=== PATIENT | female | born 1950 | race Caucasian/White ===

== ENCOUNTER 2018-03-16 11:06 | Inpatient (IN) | payer MEDICAID ==
[~2018-03-16] VITALS: Ht 160 cm; Wt 72.6 kg
[2018-03-16 12:11] LABS: BASOPHILS % 0.7 % (0.0-2.0); EOSINOPHILS % 4.3 % (0.0-5.0); HEMATOCRIT. 29.3 % (36.0-48.0); HEMOGLOBIN. 9.6 g/dL (12.0-16.0); LYMPHOCYTES % 15.4 % (20.0-50.0); MEAN CORPUSCULAR HEMOGLOBIN 27.6 pg (28.0-32.0); MEAN CORPUSCULAR VOLUME 84.5 fL (81.0-99.0); MEAN PLATELET VOLUME 8.6 fl (7.4-10.4); MONOCYTES % 5.9 % (2.0-8.0); NEUTROPHILS % 73.7 % (40.0-76.0); PLATELET 282 x1000/uL (130-400); RED BLOOD CELL COUNT 3.47 mill/uL (4.2-5.4); RED CELL DISTRIBUTION WIDTH 20.9 % (11.6-14.6)
[2018-03-16 12:15] LABS: INR 1.1; PARTIAL THROMBOPLASTIN TIME 48.9 sec (23.4-31.0)
[2018-03-16 12:17] LABS: PHOSPHORUS 3.1 mg/dL (2.5-4.9)
[2018-03-16 12:24] LABS: BG BASE EXCESS -4.8 mmol/L (-2.0-2.0); BG CARBOXYHEMOGLOBIN 0.1 % (0.5-1.5); BG DEOXYHEMOGLOBIN 3.5 % (0.0-5.0); BG FRACTION INSPIRED OXYGEN 21; BG HCO3 ACT 20.1 mmol/L (22.0-26.0); BG METHEMOGLOBIN 0.1 % (0.0-1.5); BG OXYGEN SATURATION 96.5 % (92.0-98.5); BG OXYHEMOGLOBIN 96.3 % (94.0-97.0); BG PCO2 36.6 mmHg (35.0-45.0); BG PH 7.358 (7.350-7.450); BG PO2 88.4 mmHg (75.0-100.0); BG SAMPLE SITE RIGHT BRACHIAL; BG TOTAL HEMOGLOBIN 9.9 g/dL (12.0-18.0); BG VENT MODE ROOM AIR
[2018-03-16] MEDS ORDERED: INSULIN REGULAR (HUMULIN R) 300UNITS/3ML IV ONE (12:45)
[2018-03-16 16:00] VITALS: BP 209/86
[2018-03-16] MEDS ORDERED: ONDANSETRON HCL 4MG/2ML VIAL IV PRN (16:30)
[2018-03-16] MEDS ORDERED: ACETAMINOPHEN 325MG TABLET PO PRN (16:30)
[2018-03-16] MEDS ORDERED: IPRATROPIUM/ALBUTEROL 0.5-3(2.5)MG/3ML NEB INH PRN (16:30)
[2018-03-16] MEDS ORDERED: GUAIFENESIN 200MG/10ML SUGAR FREE UDC PO PRN (16:30)
[2018-03-16] MEDS ORDERED: DIPHENHYDRAMINE 50MG/ML VIAL IV PRN (16:30)
[2018-03-16 16:32] VITALS: BP 198/98
[2018-03-16 18:00] VITALS: BP 199/98
[2018-03-16] MEDS: AMLODIPINE 10MG TABLET PO SCH (18:10)
[2018-03-16] MEDS: CLONIDINE 0.1MG TABLET PO PRN (18:10)
[2018-03-16] MEDS ORDERED: DEXTROSE 50% WATER 50ML SYRINGE IV PRN (19:30)
[2018-03-16] MEDS ORDERED: FOLI0.8T23 MT (19:42)
[2018-03-16] MEDS ORDERED: REN800 MT (19:42)
[2018-03-16] MEDS ORDERED: AMLO10TA80 MT (19:42)
[2018-03-16] MEDS ORDERED: CLON0.1T PO (19:42)
[2018-03-16] MEDS ORDERED: METO-539 MT (19:42)
[2018-03-16] MEDS ORDERED: EZET10TA26 MT (19:42)
[2018-03-16 20:00] VITALS: BP 181/78
[2018-03-16] MEDS: BLOOD SUGAR DIAGNOSTIC STRIP TEST SCH (20:27)
[2018-03-16] MEDS: METOPROLOL TARTRATE 50MG TABLET PO SCH (20:32)
[2018-03-16] MEDS: INSULIN LISPRO 100 UNITS/ML SUBCUT SCH (20:34)
[2018-03-17] VITALS (8 sets, daily range): BP systolic 142–195; BP diastolic 67–87
[2018-03-17] MEDS: CLONIDINE 0.1MG TABLET PO PRN ×2 (00:05→05:51)
[2018-03-17] MEDS: BLOOD SUGAR DIAGNOSTIC STRIP TEST SCH ×4 (07:40→20:32)
[2018-03-17 07:45] LABS: BASOPHILS % 0.8 % (0.0-2.0); HEMATOCRIT. 29.9 % (36.0-48.0); HEMOGLOBIN. 9.5 g/dL (12.0-16.0); MEAN CORPUSCULAR HEMOGLOBIN 27.1 pg (28.0-32.0); MEAN CORPUSCULAR VOLUME 84.8 fL (81.0-99.0); MEAN PLATELET VOLUME 8.4 fl (7.4-10.4); MONOCYTES % 7.6 % (2.0-8.0); NEUTROPHILS % 66.6 % (40.0-76.0); PLATELET 257 x1000/uL (130-400); RED BLOOD CELL COUNT 3.52 mill/uL (4.2-5.4); RED CELL DISTRIBUTION WIDTH 21.2 % (11.6-14.6)
[2018-03-17] MEDS: INSULIN LISPRO 100 UNITS/ML SUBCUT SCH ×4 (08:10→20:34)
[2018-03-17 08:37] LABS: CHLORIDE 106 mEq/L (98-107)
[2018-03-17] MEDS: EZETIMIBE 10MG TABLET PO SCH (08:46)
[2018-03-17] MEDS: FOLIC ACID/VITAMIN B COMP W-C TABLET PO SCH (08:46)
[2018-03-17] MEDS: SEVELAMER CARBONATE 800 MG TABLET PO SCH ×3 (08:46→18:04)
[2018-03-17] MEDS: AMLODIPINE 10MG TABLET PO SCH (08:47)
[2018-03-17] MEDS: METOPROLOL TARTRATE 50MG TABLET PO SCH ×2 (08:47→20:32)
[2018-03-18] VITALS: BP 174/78
[2018-03-18] MEDS: CLONIDINE 0.1MG TABLET PO PRN ×2 (00:02→05:53)
[2018-03-18 04:00] VITALS: BP 167/77
[2018-03-18] MEDS: BLOOD SUGAR DIAGNOSTIC STRIP TEST SCH ×4 (07:40→21:30)
[2018-03-18 08:00] VITALS: BP 177/80
[2018-03-18] MEDS: INSULIN LISPRO 100 UNITS/ML SUBCUT SCH ×4 (08:10→21:28)
[2018-03-18] MEDS: EZETIMIBE 10MG TABLET PO SCH (09:00)
[2018-03-18] MEDS: AMLODIPINE 10MG TABLET PO SCH (09:00)
[2018-03-18] MEDS: METOPROLOL TARTRATE 50MG TABLET PO SCH ×2 (09:00→21:00)
[2018-03-18] MEDS ORDERED: SODIUM BICARBONATE 4% (2.4MEQ) 5ML VIAL IV ONE (09:33)
[2018-03-18] MEDS ORDERED: LIDOCAINE HCL/PF 1% 10 MG/ML 5ML VIAL ONE (09:33)
[2018-03-18] MEDS: SEVELAMER CARBONATE 800 MG TABLET PO SCH ×3 (11:39→16:54)
[2018-03-18] MEDS: FOLIC ACID/VITAMIN B COMP W-C TABLET PO SCH (11:40)
[2018-03-18 12:00] VITALS: BP 168/80
[2018-03-18 20:00] VITALS: BP 171/69
[2018-03-19] VITALS: BP 186/80
[2018-03-19] MEDS ORDERED: MORPHINE SULFATE 4 MG/ML CPJ (NOT FOR IM USE) IV PRN (00:15)
[2018-03-19 04:00] VITALS: BP 149/72
[2018-03-19] MEDS: SEVELAMER CARBONATE 800 MG TABLET PO SCH (08:32)
[2018-03-19] MEDS: EZETIMIBE 10MG TABLET PO SCH (08:32)
[2018-03-19] MEDS: FOLIC ACID/VITAMIN B COMP W-C TABLET PO SCH (08:32)
[2018-03-19] MEDS: AMLODIPINE 10MG TABLET PO SCH (08:33)
[2018-03-19] MEDS: INSULIN LISPRO 100 UNITS/ML SUBCUT SCH (08:34)
[2018-03-19] MEDS: METOPROLOL TARTRATE 50MG TABLET PO SCH (08:34)
[2018-03-19] MEDS: BLOOD SUGAR DIAGNOSTIC STRIP TEST SCH (08:39)
[2018-03-19 11:50] VITALS: BP 166/71
== END 2018-03-19 13:08 | disposition home or self-care (01) | DRG 466 ==
LOC: EDBEDREQTM 11:47 → EDBEDREQ 11:47 → ER 12:05 → ENRESERV 14:11 → 7WST 15:55
PROVIDERS: ADMIT Hospitalist; ATTEND Hospitalist
PROC: 5A1D70Z Performance of Urinary Filtration, Intermittent, Less than 6 Hours Per Day (ICD-10-PCS; 2018-03-16)
PROC: 5A1D70Z Performance of Urinary Filtration, Intermittent, Less than 6 Hours Per Day (ICD-10-PCS; 2018-03-17)
PROC: 0JPV3XZ Removal of Tunneled Vascular Access Device from Upper Extremity Subcutaneous Tissue and Fascia, Percutaneous Approach (ICD-10-PCS; principal; 2018-03-18)
PROC: 0JH63XZ Insertion of Tunneled Vascular Access Device into Chest Subcutaneous Tissue and Fascia, Percutaneous Approach (ICD-10-PCS; 2018-03-18)
PROC: 02HV33Z Insertion of Infusion Device into Superior Vena Cava, Percutaneous Approach (ICD-10-PCS; 2018-03-18)
PROC: B5181ZA Fluoroscopy of Superior Vena Cava using Low Osmolar Contrast, Guidance (ICD-10-PCS; 2018-03-18)
DX: T82.49XA Other complication of vascular dialysis catheter, initial encounter (principal); N18.6 End stage renal disease; E43 Unspecified severe protein-calorie malnutrition; I50.33 Acute on chronic diastolic (congestive) heart failure; E11.22 Type 2 diabetes mellitus with diabetic chronic kidney disease; Y83.8 Other surgical procedures as the cause of abnormal reaction of the patient, or of later complication, without mention of misadventure at the time of the procedure; I13.2 Hypertensive heart and chronic kidney disease with heart failure and with stage 5 chronic kidney disease, or end stage renal disease; D63.1 Anemia in chronic kidney disease; Y71.2 Prosthetic and other implants, materials and accessory cardiovascular devices associated with adverse incidents; E66.9 Obesity, unspecified; E11.65 Type 2 diabetes mellitus with hyperglycemia; Z99.2 Dependence on renal dialysis; Z79.899 Other long term (current) drug therapy; Z79.1 Long term (current) use of non-steroidal anti-inflammatories (NSAID); Z79.2 Long term (current) use of antibiotics; Y92.89 Other specified places as the place of occurrence of the external cause
CPT/HCPCS: 36415; 36581; 36600; 71045; 77001; 80048; 80053; 82375; 82805; 82962; 83735; 84100; 84484; 85025; 85610; 85730; 93005; 93970; C1725; C1750; C1769; J1642; J1815; J2270; J3490; J7030

== ENCOUNTER 2022-11-16 17:19 | Inpatient (IN) | payer MEDICAID ==
[~2022-11-16] VITALS: Ht 162.6 cm; Wt 77.1 kg
[~2022-11-16 17:19] MED LIST: AMLO10TA80 MT; CLON0.1T PO; EZET10TA26 MT; FOLI0.8T23 MT; METO-539 MT; REN800 MT
[2022-11-16] MEDS ORDERED: IOHEXOL-350 100 ML BOTTLE ONE (18:14)
[2022-11-16] MEDS ORDERED: DILTIAZEM HCL 5MG/ML 5ML VIAL IV ONE (18:45)
[2022-11-16] MEDS ORDERED: DILTIAZEM HCL 5MG/ML 5ML VIAL IV NR (18:45)
[2022-11-16 19:21] LABS: CHLORIDE 90 mEq/L (98-107)
[2022-11-16 19:24] LABS: BASOPHILS % 0.6 % (0.0-2.0); HEMATOCRIT. 23.1 % (36.0-48.0); HEMOGLOBIN. 7.6 g/dL (12.0-16.0); LYMPHOCYTES % 10.3 % (20.0-50.0); MEAN CORPUSCULAR HEMOGLOBIN 28.4 pg (28.0-32.0); MEAN CORPUSCULAR VOLUME 86.7 fL (81.0-99.0); MEAN PLATELET VOLUME 8.7 fl (7.4-10.4); MONOCYTES % 6.2 % (2.0-8.0); NEUTROPHILS % 80.9 % (40.0-76.0); PLATELET 387 x1000/uL (130-400); RED BLOOD CELL COUNT 2.66 mill/uL (4.2-5.4); RED CELL DISTRIBUTION WIDTH 17.4 % (11.6-14.6)
[2022-11-16 19:32] LABS: ETHANOL BLOOD < 10 mg/dL
[2022-11-16] MEDS ORDERED: HEPARIN XX SCH (20:15)
[2022-11-16] MEDS ORDERED: HEPARIN 60 UNITS/KG BOLUS IV SCH (20:15)
[2022-11-16 20:36] LABS: PARTIAL THROMBOPLASTIN TIME 24.3 sec (23.4-31.0); PROTHROMBIN TIME 11.2 sec (9.6-11.0)
[2022-11-16] MEDS ORDERED: HEPARIN 25,000 UNITS PREMIX 250 ML IV SCH (21:00)
[2022-11-16] MEDS ORDERED: IPRATROPIUM/ALBUTEROL 0.5-3(2.5)MG/3ML NEB NEB PRN (22:15)
[2022-11-16] MEDS ORDERED: ZOLPIDEM TARTRATE 5MG TABLET PO PRN (22:15)
[2022-11-16] MEDS ORDERED: CLONIDINE 0.1MG TABLET PO PRN (22:15)
[2022-11-16] MEDS ORDERED: MAGNESIUM/ALUMINUM HYDROXIDE/SIMETHICONE 30ML UDC PO PRN (22:15)
[2022-11-16] MEDS ORDERED: DOCUSATE SODIUM 100MG CAPSULE PO PRN (22:15)
[2022-11-16] MEDS ORDERED: ACETAMINOPHEN 325MG TABLET PO PRN ×2 (22:15)
[2022-11-16] MEDS ORDERED: ONDANSETRON HCL 4MG/2ML INJ IV PRN (22:15)
[2022-11-16] MEDS ORDERED: NITROGLYCERIN 0.4MG TABLET SL SL PRN (22:15)
[2022-11-16] MEDS ORDERED: GUAIFENESIN 200MG/10ML SUGAR FREE UDC PO PRN (22:15)
[2022-11-16 23:06] LABS: T4 FREE 1.55 ng/dL (0.76-1.46)
[2022-11-16 23:33] LABS: FOLIC ACID (FOLATE) SERUM > 20.00 ng/mL (>5.38); VITAMIN B12 SERUM > 2000.0 pg/mL (211-911)
[2022-11-17] VITALS (11 sets, daily range): BP systolic 108–141; BP diastolic 44–59
[2022-11-17] MEDS ORDERED: ENOXAPARIN 80MG/0.8ML SYR SUBCUT NR
[2022-11-17] MEDS ORDERED: DEXTROSE 50% WATER 50ML SYRINGE IV PRN
[2022-11-17] MEDS ORDERED: HEPARIN BOLUS PRN aPTT 30-44 IV (04:00)
[2022-11-17] MEDS ORDERED: HEPARIN BOLUS PRN aPTT <30 IV (04:00)
[2022-11-17] MEDS ORDERED: EZET10TA13 MT (05:42)
[2022-11-17] MEDS ORDERED: AMLO2.5T45 MT (05:42)
[2022-11-17] MEDS ORDERED: ASPI-1497 PO (05:42)
[2022-11-17] MEDS ORDERED: ATOR10TA69 MT (05:42)
[2022-11-17] MEDS ORDERED: HYDR-4133 MT (05:42)
[2022-11-17] MEDS: INSULIN LISPRO 100 UNITS/ML SUBCUT SCH ×4 (06:52→22:10)
[2022-11-17] MEDS: BLOOD SUGAR DIAGNOSTIC STRIP TEST SCH ×4 (06:52→22:10)
[2022-11-17] MEDS: SEVELAMER CARBONATE 800 MG TABLET PO SCH ×3 (06:53→17:53)
[2022-11-17] MEDS ORDERED: ASPIRIN 325MG EC TABLET PO SCH (09:00)
[2022-11-17] MEDS: FAMOTIDINE 20MG TABLET PO SCH (09:08)
[2022-11-17] MEDS: AMLODIPINE 10MG TABLET PO SCH (09:08)
[2022-11-17] MEDS: EZETIMIBE 10MG TABLET PO SCH (09:08)
[2022-11-17] MEDS: METOPROLOL TARTRATE 25MG TABLET PO SCH ×2 (09:08→22:09)
[2022-11-17 11:26] LABS: BASOPHILS % 1.7 % (0.0-2.0); EOSINOPHILS % 7.1 % (0.0-5.0); LYMPHOCYTES % 17.6 % (20.0-50.0); MEAN CORPUSCULAR HEMOGLOBIN 28.7 pg (28.0-32.0); MEAN PLATELET VOLUME 8.4 fl (7.4-10.4); MONOCYTES % 9.8 % (2.0-8.0); NEUTROPHILS % 63.8 % (40.0-76.0); PLATELET 331 x1000/uL (130-400); RED BLOOD CELL COUNT 2.36 mill/uL (4.2-5.4); RED CELL DISTRIBUTION WIDTH 17.1 % (11.6-14.6)
[2022-11-17 11:39] LABS: HEMATOCRIT. 20.5 % (36.0-48.0); HEMOGLOBIN. 6.8 g/dL (12.0-16.0)
[2022-11-17 12:01] LABS: CREATINE KINASE 145 IU/L (26-192); CREATINE KINASE MB FRACTION < 1.0 ng/mL (0.5-3.6)
[2022-11-17 16:51] LABS: CREATINE KINASE 153 IU/L (26-192); CREATINE KINASE MB FRACTION < 1.0 ng/mL (0.5-3.6)
[2022-11-17] MEDS ORDERED: IPRATROPIUM BROMIDE (0.02%) 0.5MG/2.5ML NEB HHN PRN (17:45)
[2022-11-17] MEDS ORDERED: ALBUTEROL (0.083%) 2.5MG/3ML NEB HHN PRN (17:45)
[2022-11-17] MEDS ORDERED: EPOETIN ALFA-EPBX 4,000 UNIT/ML VIAL SUBCUT SCH (21:00)
[2022-11-17] MEDS ORDERED: ENOXAPARIN 80MG/0.8ML SYR SUBCUT SCH (21:00)
[2022-11-17] MEDS: ATORVASTATIN CALCIUM 40MG TABLET PO SCH (22:09)
[2022-11-17 23:35] LABS: EOSINOPHILS % 8.6 % (0.0-5.0); HEMOGLOBIN. 8.6 g/dL (12.0-16.0); LYMPHOCYTES % 20.4 % (20.0-50.0); MEAN CORPUSCULAR HEMOGLOBIN 28.9 pg (28.0-32.0); MEAN CORPUSCULAR VOLUME 87.7 fL (81.0-99.0); MEAN PLATELET VOLUME 8.3 fl (7.4-10.4); MONOCYTES % 8.9 % (2.0-8.0); NEUTROPHILS % 61.1 % (40.0-76.0); PLATELET 363 x1000/uL (130-400); RED BLOOD CELL COUNT 2.96 mill/uL (4.2-5.4); RED CELL DISTRIBUTION WIDTH 16.2 % (11.6-14.6)
[2022-11-17 23:55] LABS: CHLORIDE 89 mEq/L (98-107)
[2022-11-18] VITALS (16 sets, daily range): BP systolic 93–146; BP diastolic 39–84
[2022-11-18 00:31] LABS: HEPATITIS B SURFACE ANTIGEN NEGATIVE
[2022-11-18] MEDS: BLOOD SUGAR DIAGNOSTIC STRIP TEST SCH ×4 (06:54→22:10)
[2022-11-18] MEDS: INSULIN LISPRO 100 UNITS/ML SUBCUT SCH ×4 (06:54→22:10)
[2022-11-18] MEDS: SEVELAMER CARBONATE 800 MG TABLET PO SCH ×3 (06:54→17:10)
[2022-11-18] MEDS: AMLODIPINE 10MG TABLET PO SCH (10:06)
[2022-11-18] MEDS: FAMOTIDINE 20MG TABLET PO SCH (10:06)
[2022-11-18] MEDS: EZETIMIBE 10MG TABLET PO SCH (10:06)
[2022-11-18] MEDS: METOPROLOL TARTRATE 25MG TABLET PO SCH ×2 (10:06→22:25)
[2022-11-18] MEDS: ATORVASTATIN CALCIUM 40MG TABLET PO SCH (22:22)
[2022-11-19] VITALS: BP 141/56
[2022-11-19 03:54] VITALS: BP 128/46
[2022-11-19] MEDS: BLOOD SUGAR DIAGNOSTIC STRIP TEST SCH (06:40)
[2022-11-19] MEDS: INSULIN LISPRO 100 UNITS/ML SUBCUT SCH (07:10)
[2022-11-19] MEDS: SEVELAMER CARBONATE 800 MG TABLET PO SCH (07:38)
[2022-11-19 07:56] VITALS: BP 149/51
[2022-11-19] MEDS: METOPROLOL TARTRATE 25MG TABLET PO SCH (09:00)
[2022-11-19] MEDS: EZETIMIBE 10MG TABLET PO SCH (09:00)
[2022-11-19] MEDS: AMLODIPINE 10MG TABLET PO SCH (09:00)
[2022-11-19] MEDS: FAMOTIDINE 20MG TABLET PO SCH (09:00)
[2022-11-19 09:48] VITALS: BP 129/65
[2022-11-20] MEDS ORDERED: VANC250C12 MT (09:52)
== END 2022-11-19 11:33 | disposition home or self-care (01) | DRG 720 ==
LOC: ER 17:23 → MICUSO 22:02 → EDBEDREQSVC 22:16 → EDBEDREQTM 22:16 → EDBEDREQ 22:16 → 7EST 11-17 01:38
PROVIDERS: ADMIT Internal Medicine; ATTEND Internal Medicine
PROC: 30233N1 Transfusion of Nonautologous Red Blood Cells into Peripheral Vein, Percutaneous Approach (ICD-10-PCS; principal; 2022-11-17)
PROC: 5A1D70Z Performance of Urinary Filtration, Intermittent, Less than 6 Hours Per Day (ICD-10-PCS; 2022-11-18)
DX: A41.9 Sepsis, unspecified organism (principal); G92.8 Other toxic encephalopathy; I12.0 Hypertensive chronic kidney disease with stage 5 chronic kidney disease or end stage renal disease; I21.A1 Myocardial infarction type 2; G45.9 Transient cerebral ischemic attack, unspecified; A04.72 Enterocolitis due to Clostridium difficile, not specified as recurrent; N18.6 End stage renal disease; I95.3 Hypotension of hemodialysis; G90.8 Other disorders of autonomic nervous system; E11.22 Type 2 diabetes mellitus with diabetic chronic kidney disease; D64.9 Anemia, unspecified; I48.0 Paroxysmal atrial fibrillation; E11.51 Type 2 diabetes mellitus with diabetic peripheral angiopathy without gangrene; K21.9 Gastro-esophageal reflux disease without esophagitis; E78.5 Hyperlipidemia, unspecified; E78.00 Pure hypercholesterolemia, unspecified; Z99.2 Dependence on renal dialysis; Z89.422 Acquired absence of other left toe(s); Z79.4 Long term (current) use of insulin; Z79.899 Other long term (current) drug therapy; Z79.2 Long term (current) use of antibiotics
CPT/HCPCS: 36415; 70496; 70498; 70551; 71045; 73630; 80053; 80061; 80320; 82270; 82550; 82553; 82607; 82746; 82962; 83036; 83540; 83550; 83605; 83735; 84145; 84439; 84443; 84484; 85025; 86705; 86709; 86803; 86850; 86900; 86920; 87015; 87045; 87177; 87209; 87340; 87427; 87493; 89055; 90935; 93306; 93970; 97162; 99291; J0885; J1644; J1650; J1815; J3490; P9016; Q9967; G0480